=== PATIENT | male | born 1970 | race Native Hawaiian/Other Pacific Islander ===

== ENCOUNTER 2017-05-30 11:35 | Inpatient (IN) | payer MEDICAID ==
[~2017-05-30] VITALS: Ht 172.7 cm; Wt 90.7 kg
[2017-05-30] MEDS ORDERED: ASPIRIN 325 MG TABLET PO ONE (12:00)
[2017-05-30] MEDS ORDERED: NITROGLYCERIN OINT 1 GM PACKET TP ONE ×2 (12:00→12:05)
[2017-05-30] MEDS ORDERED: FUROSEMIDE 20 MG/2 ML VIAL IVP ONE (12:00)
[2017-05-30 12:02] LABS: BASOPHILS # (AUTO) 0.2 K/uL (0.0-8.0); BASOPHILS % (AUTO) 2.2 % (0.0-2.0); EOSINOPHILS # (AUTO) 0.1 K/uL (0.0-0.7); EOSINOPHILS % (AUTO) 1.1 % (0.0-7.0); HEMATOCRIT 47.7 % (40-50); HEMOGLOBIN 15.5 G/DL (14.0-18.0); LYMPHOCYTES # (AUTO) 1.6 K/UL (0.8-4.8); LYMPHOCYTES % (AUTO) 18.8 % (20.5-51.5); MEAN CORPUSCULAR HEMOGLOBIN 29.4 UUG (27.0-31.0); MEAN CORPUSCULAR HGB CONC 33 g/dL (32.0-37.0); MEAN CORPUSCULAR VOLUME 90.4 FL (82.0-92.0); MONOCYTES % (AUTO) 11.1 % (0.0-11.0); NEUTROPHILS # (AUTO) 5.7 K/UL (1.8-8.9); NEUTROPHILS % (AUTO) 66.8 % (38.5-71.5); PLATELET COUNT (AUTO) 194 K/UL (150-450); RED BLOOD CELL COUNT(AUTO) 5.28 MIL/UL (4.7-6.1); WHITE BLOOD COUNT (AUTO) 8.6 K/UL (4.0-11.2)
[2017-05-30 12:08] LABS: CREATININE 1.7 mg/dL (0.6-1.3); POTASSIUM 3.7 mmol/L (3.5-5.1)
--- NOTE | 2017-05-30 12:09 | NUR ---
PT ON CONTINOUS CARDIAC MONITORING. HE IS AWAKE AND ALERT.
[2017-05-30] MEDS ORDERED: ASPIRIN 81 MG TAB.CHEW ONE (12:13)
[2017-05-30] MEDS ORDERED: FUROSEMIDE 20 MG/2 ML VIAL ONE (12:13)
[2017-05-30 12:21] LABS: BILIRUBIN,DIRECT 0.6 mg/dL (0.0-0.2); TOTAL PROTEIN, SERUM 7.1 g/dL (6.4-8.2)
--- NOTE | 2017-05-30 12:34 | NUR ---
DR RODRIGEZ NOTIIFED OF ELEVATED TROPONIN
--- NOTE | 2017-05-30 12:52 | NUR ---
PATIENT STATES PAIN HAS DIMINISHED.
[2017-05-30] MEDS ORDERED: ASPI81TA31 PO (13:04)
[2017-05-30] MEDS ORDERED: ENAL10TA75 PO (13:04)
[2017-05-30] MEDS ORDERED: BENA5TAB2 PO (13:04)
[2017-05-30] MEDS ORDERED: FURO-152 PO (13:04)
--- NOTE | 2017-05-30 13:24 | NUR ---
PATIENT VOIDED ABOUT 750 CC OF URINE. PT AWARE OFPENDING ADMISSION TO TELE. REPORT GIVEN TO EDE EDWARDS.
[2017-05-30 14:16] VITALS: BP 117/72
--- NOTE | 2017-05-30 14:42 | NUR ---
NEW ADMISSION TO ROOM 4 WITH DX CHEST PAIN. PATIENT ALERT AND ORIENTED IN NO ACUTE DISTRESS. RESPIRATION EVEN AND UNLABORED. SR ON TELECOMMUNICATIONS CLERK. VSS. PATIENT SEEN BY HYDRAULIC TESTER DR. WELSH .
[2017-05-30] MEDS: FUROSEMIDE 40 MG/4 ML VIAL IV SCH ×2 (14:51→20:32)
--- NOTE | 2017-05-30 14:51 | NUR ---
A call to Dr. Leal to notify him of pt's arrival to the unit.
[2017-05-30 16:27] VITALS: BP 124/84
--- NOTE | 2017-05-30 19:30 | NUR ---
Report received. Patient AAO; denies any pain or discomfort. Watching TV. Assessment completed. Addendum: 05/30/17 at 2206 by BRITTA RICHARDS RN Amended: Links added.
--- NOTE | 2017-05-30 19:50 | NUR ---
Seen by Dr. Leal; with orders. Patient c/o being hungry. Crackers, deb served. Ate well. Addendum: 05/30/17 at 2147 by BRITTA RICHARDS RN Amended: Links added. Addendum: 05/30/17 at 2206 by BRITTA RICHARDS RN Amended: Links added.
[2017-05-30 20:00] VITALS: BP 131/79
[2017-05-30] MEDS ORDERED: ONDANSETRON 4 MG/2 ML VIAL IV PRN (20:00)
[2017-05-30] MEDS ORDERED: ACETAMINOPHEN 325 MG TABLET PO PRN (20:00)
[2017-05-30] MEDS ORDERED: ZOLPIDEM 5 MG TABLET PO PRN (20:00)
[2017-05-30] MEDS ORDERED: Z GUARD REMEDY PASTE 57 GM TUBE TOP PRN (20:00)
[2017-05-30] MEDS ORDERED: MAGNESIUM HYDROXIDE 30 ML LIQUID UDC PO PRN (20:00)
--- NOTE | 2017-05-30 20:30 | NUR ---
Smoking cessation teaching given. Patient verbalized understanding. Printed information provided. Addendum: 05/30/17 at 2212 by BRITTA RICHARDS RN Amended: Links added.
[2017-05-30 21:30] VITALS: BP 120/66
--- NOTE | 2017-05-30 22:35 | NUR ---
Patient c/o leg cramps. Medicated with Tylenol. Voiding well after Lasix. Addendum: 05/30/17 at 2243 by BRITTA RICHARDS RN Amended: Links added.
[2017-05-30] MEDS: HYDROCODONE/APAP 5-325MG TABLET PO PRN (23:20)
--- NOTE | 2017-05-30 23:20 | NUR ---
Patient screaming; with severe leg cramps. Wants some water to drink. Medicated with [place]. DVT pumps applied which seem to help his pain.
[2017-05-31] VITALS (7 sets, daily range): BP systolic 100–123; BP diastolic 59–80
--- NOTE | 2017-05-31 01:00 | NUR ---
Sleeping. NAD noted. Addendum: 05/31/17 at 0618 by BRITTA RICHARDS RN Amended: Links added.
[2017-05-31] MEDS: HYDROCODONE/APAP 5-325MG TABLET PO PRN ×2 (04:25→11:31)
--- NOTE | 2017-05-31 04:25 | NUR ---
Awake, moaning, occasionally screaming, c/o leg cramps. Stood at side of bed asking for water. Medicated with [place] for pain. VS stable. Addendum: 05/31/17 at 0616 by BRITTA RICHARDS RN Amended: Links added.
[2017-05-31 05:04] LABS: BASOPHILS # (AUTO) 0.1 K/uL (0.0-8.0); BASOPHILS % (AUTO) 1.3 % (0.0-2.0); EOSINOPHILS # (AUTO) 0.2 K/uL (0.0-0.7); EOSINOPHILS % (AUTO) 2.3 % (0.0-7.0); HEMATOCRIT 50.3 % (40-50); HEMOGLOBIN 17.1 G/DL (14.0-18.0); LYMPHOCYTES # (AUTO) 1.7 K/UL (0.8-4.8); LYMPHOCYTES % (AUTO) 16.9 % (20.5-51.5); MEAN CORPUSCULAR HEMOGLOBIN 30.9 UUG (27.0-31.0); MEAN CORPUSCULAR HGB CONC 34 g/dL (32.0-37.0); MEAN CORPUSCULAR VOLUME 90.8 FL (82.0-92.0); MONOCYTES # (AUTO) 1.3 K/UL (0.1-1.30); MONOCYTES % (AUTO) 12.7 % (0.0-11.0); NEUTROPHILS # (AUTO) 6.7 K/UL (1.8-8.9); NEUTROPHILS % (AUTO) 66.8 % (38.5-71.5); PLATELET COUNT (AUTO) 200 K/UL (150-450); RED BLOOD CELL COUNT(AUTO) 5.54 MIL/UL (4.7-6.1)
[2017-05-31 05:10] LABS: CREATININE 1.8 mg/dL (0.6-1.3); MAGNESIUM 1.7 mg/dL (1.8-2.4); PHOSPHOROUS 4.4 mg/dL (2.5-4.9); POTASSIUM 4.2 mmol/L (3.5-5.1)
--- NOTE | 2017-05-31 07:27 | NUR ---
Pt. sleeping,no s/s of distress or pain noted.
[2017-05-31] MEDS: ENALAPRIL 10 MG TABLET PO SCH (08:44)
[2017-05-31] MEDS: ASPIRIN 81 MG TAB.CHEW PO SCH (08:44)
[2017-05-31] MEDS: FUROSEMIDE 40 MG/4 ML VIAL IV SCH (08:44)
[2017-05-31] MEDS ORDERED: FUROSEMIDE 40 MG/4 ML VIAL IV SCH (09:00)
[2017-05-31] MEDS ORDERED: MAGNESIUM OXIDE 400 MG TABLET PO ONE (09:15)
--- NOTE | 2017-05-31 10:00 | NUR ---
Pt.A/A/O watching,TV ask for snack was provided.
[2017-05-31] MEDS: CARVEDILOL 3.125 MG TABLET PO SCH ×2 (11:58→17:49)
--- NOTE | 2017-05-31 12:00 | NUR ---
TRANSFERRED FROM CCU TO ROOM 226 ALERT AND ORIENTED X3 NO ACUTE CHANGE SR ON MONITOR
--- NOTE | 2017-05-31 12:10 | NUR ---
Pt.was Tx.to TELE floor under manager water,no s/s of distress.
--- NOTE | 2017-05-31 16:21 | NUR ---
RESTING COMFORTABLY NO SIGNS OF PAIN OR DISTRESS
--- NOTE | 2017-05-31 20:00 | NUR ---
NSG: PT RECEIVED A/O X 4, COMFORTABLE RESTING IN BED. DENIES CHEST PAIN AND OTHER DISCOMFORT. V/S STABLE. TELE, SR. CONT TO MONITOR.
--- NOTE | 2017-06-01 | NUR ---
nsg: no change in condition.
[2017-06-01 04:00] VITALS: BP 93/68
--- NOTE | 2017-06-01 06:14 | NUR ---
nsg: no acute distress noted. denies discomfort. tele.
--- NOTE | 2017-06-01 06:20 | NUR ---
nsg: pt gets up to go to the bathroom.
[2017-06-01 06:30] LABS: BASOPHILS # (AUTO) 0.1 K/uL (0.0-8.0); BASOPHILS % (AUTO) 0.8 % (0.0-2.0); EOSINOPHILS # (AUTO) 0.4 K/uL (0.0-0.7); EOSINOPHILS % (AUTO) 4.3 % (0.0-7.0); HEMATOCRIT 53.7 % (40-50); LYMPHOCYTES # (AUTO) 1.9 K/UL (0.8-4.8); MEAN CORPUSCULAR HEMOGLOBIN 30.9 UUG (27.0-31.0); MEAN CORPUSCULAR HGB CONC 34 g/dL (32.0-37.0); MEAN CORPUSCULAR VOLUME 92.3 FL (82.0-92.0); MONOCYTES # (AUTO) 1.1 K/UL (0.1-1.30); MONOCYTES % (AUTO) 13.5 % (0.0-11.0); NEUTROPHILS # (AUTO) 4.9 K/UL (1.8-8.9); NEUTROPHILS % (AUTO) 59.4 % (38.5-71.5); PLATELET COUNT (AUTO) 221 K/UL (150-450); RED BLOOD CELL COUNT(AUTO) 5.81 MIL/UL (4.7-6.1); WHITE BLOOD COUNT (AUTO) 8.4 K/UL (4.0-11.2)
[2017-06-01 07:00] LABS: CREATININE 1.4 mg/dL (0.6-1.3); MAGNESIUM 1.9 mg/dL (1.8-2.4); POTASSIUM 3.7 mmol/L (3.5-5.1)
--- NOTE | 2017-06-01 08:00 | NUR ---
KEEP NPO FOR GB US, NO SIGNS OF PAIN OR DISTRESS SR ON MONITOR
[2017-06-01] MEDS: ASPIRIN 81 MG TAB.CHEW PO SCH (08:52)
[2017-06-01] MEDS: FUROSEMIDE 40 MG TABLET PO SCH (08:53)
[2017-06-01] MEDS: CARVEDILOL 3.125 MG TABLET PO SCH ×2 (08:53→18:07)
[2017-06-01] MEDS: ENALAPRIL 10 MG TABLET PO SCH (08:53)
--- NOTE | 2017-06-01 10:00 | NUR ---
GB US RESULTED SEE COPY
[2017-06-01 10:29] LABS: BAND % (MANUAL) 4 % (0-10); EOSINOPHILS % (MANUAL) 4 % (0-8); LYMPHOCYTES % (MANUAL) 21 % (20-40); MONOCYTES % (MANUAL) 17 % (2-10); NEUTROPHILS % (MANUAL) 54 % (42-75)
[2017-06-01 11:17] VITALS: BP 100/67
--- NOTE | 2017-06-01 12:00 | NUR ---
NO ACUTE CHANGE
[2017-06-01 15:02] VITALS: BP 104/68
--- NOTE | 2017-06-01 18:26 | NUR ---
PER DR BELLE AND DR JAIR DENISE DC PT IN AM, REMAINS SR ON MONITOR
[2017-06-01 19:00] VITALS: BP 109/69
[2017-06-01 23:55] VITALS: BP 111/70
[2017-06-02 04:00] VITALS: BP 102/55
--- NOTE | 2017-06-02 05:52 | NUR ---
SLEPT INTERMITTENTLY, DENIES ANY CHEST PAIN. V/S CHECKED AND RECORDED. SR ON TELE MONITOR. IN NO ACUTE SIGNS OF DISTRESS. SAFETY MAINTAINED. CALL LIGHT WITHIN REACH. Addendum: 06/02/17 at 0621 by PATIENCE DIAZ RN SR WITH PVC'S AND PAC'S ON TELE.
[2017-06-02 06:44] LABS: BASOPHILS # (AUTO) 0.1 K/uL (0.0-8.0); BASOPHILS % (AUTO) 0.9 % (0.0-2.0); EOSINOPHILS # (AUTO) 0.4 K/uL (0.0-0.7); EOSINOPHILS % (AUTO) 4.8 % (0.0-7.0); HEMATOCRIT 53.1 % (40-50); HEMOGLOBIN 17.8 G/DL (14.0-18.0); LYMPHOCYTES # (AUTO) 1.9 K/UL (0.8-4.8); LYMPHOCYTES % (AUTO) 20.7 % (20.5-51.5); MEAN CORPUSCULAR HEMOGLOBIN 30.9 UUG (27.0-31.0); MEAN CORPUSCULAR HGB CONC 34 g/dL (32.0-37.0); MEAN CORPUSCULAR VOLUME 92.3 FL (82.0-92.0); MONOCYTES # (AUTO) 1.3 K/UL (0.1-1.30); MONOCYTES % (AUTO) 14.7 % (0.0-11.0); NEUTROPHILS # (AUTO) 5.4 K/UL (1.8-8.9); NEUTROPHILS % (AUTO) 58.9 % (38.5-71.5); PLATELET COUNT (AUTO) 223 K/UL (150-450); RED BLOOD CELL COUNT(AUTO) 5.75 MIL/UL (4.7-6.1); WHITE BLOOD COUNT (AUTO) 9.1 K/UL (4.0-11.2)
[2017-06-02 06:52] LABS: CREATININE 1.3 mg/dL (0.6-1.3)
[2017-06-02] MEDS: CARVEDILOL 3.125 MG TABLET PO SCH ×2 (08:00→17:33)
[2017-06-02] MEDS: ENALAPRIL 10 MG TABLET PO SCH (08:01)
[2017-06-02] MEDS: FUROSEMIDE 40 MG TABLET PO SCH (08:01)
[2017-06-02] MEDS: ASPIRIN 81 MG TAB.CHEW PO SCH (08:14)
[2017-06-02 11:27] VITALS: BP 100/65
[2017-06-02] MEDS ORDERED: POTA20TA10 PO (14:25)
[2017-06-02] MEDS ORDERED: CARV3.122 PO (14:25)
[2017-06-02] MEDS ORDERED: FURO-151 PO (14:25)
[2017-06-02 15:11] VITALS: BP 100/76
--- NOTE | 2017-06-02 16:29 | NUR ---
The patient will be discharged today to himself. Referred him to [facility] [[address] [place] [id number]]; [facility] - - daily intake 8:00 a.m. - first come first serve, close at 5:00 p.m. - [address] [facility] [place] [address]; and [facility] [ - daily 6:30 a.m. - stay up to five days - can assist 450 men & 190 women - [address] [place] [id number]]. He felt that [place] is too far for him and preferred to be discharged to himself. Provided him with a [facility] packet for the [facility] and a [facility] booklet. He was also provided with a bus token and was very thankful. His RN, Kylie, is aware of his discharge plan.
[2017-06-02 16:58] VITALS: BP 104/68
--- NOTE | 2017-06-02 17:29 | NUR ---
DISCHARGE NOTE: NO S/S OF RESPIRATORY DISTRESS NOTED, NO S/S OF PAIN REPORTED. IV/WRISTBAND REMOVED. PT REFUSED TO BE PLACED IN HALF-WAY WITH C/M. ALL SAFETY NEEDS ARE MET. VS WNL. NO DIZZINESS REPORTED.
== END 2017-06-02 17:30 | disposition home or self-care (01) | DRG 194 ==
LOC: ER 11:35 → CCU 13:54 → TELE 05-31 11:59
PROVIDERS: ADMIT Family Medicine; ATTEND Family Medicine
DX: I13.0 Hypertensive heart and chronic kidney disease with heart failure and stage 1 through stage 4 chronic kidney disease, or unspecified chronic kidney disease (principal); I21.4 Non-ST elevation (NSTEMI) myocardial infarction; N17.0 Acute kidney failure with tubular necrosis; I50.23 Acute on chronic systolic (congestive) heart failure; K75.9 Inflammatory liver disease, unspecified; Z59.0 Homelessness; Z87.891 Personal history of nicotine dependence; I42.9 Cardiomyopathy, unspecified; N18.9 Chronic kidney disease, unspecified
CPT/HCPCS: 36415; 70030-TC; 71010; 83735; 84100; 85025; 85730; 93005; 93307; J1940